=== PATIENT | male | born 1995 | race Native Hawaiian/Other Pacific Islander ===

== ENCOUNTER 2019-04-03 18:01 | Emergency (ER) | payer BC ==
[2019-04-03] MEDS ORDERED: Diph,Pert(Acell),Tet Vac 0.5 ML SYR IM ONE (18:38)
--- NOTE | 2019-04-03 18:44 | Emergency Department Record ---
History of Present Illness - General Chief Complaint: Laceration(s) Stated Complaint: RT HAND LACERATION Time Seen by Provider: 04/03/19 18:38 Source: Patient, Family (spouce) Mode of Arrival: Ambulatory Limitations: No limitations - History of Present Illness Initial Commments: Pt from home with injury to right hand from wood carving knife. Pt is left hand dominate. Accidental injury. Local pain and bleeding. No numbness or decreased ROM. -: Minutes(s) Place: Home Context: Sharp object use Associated Symptoms: None Treatments Prior to Arrival: Bandage - [place] Coma Scale Eye Response: (4) Open spontaneously Motor Response: (6) Obeys commands Verbal Response: (5) Oriented [place] Total: 15 - Related Data Hx Tetanus Toxoid Vaccination: Yes Year of Tetanus Vaccination: 2015 Patient Tetanus UTD (within 5 yrs): Yes Home Medications Medication Instructions Recorded Confirmed Last Taken Vitamin B Complex/Folic Acid [B 0.4 mg PO DAILY 04/03/19 04/03/19 04/03/19 Complex Formula #1 Tablet] Allergies Allergy/AdvReac Type Severity Reaction Status Date / Time No Known Drug Allergies Allergy Verified 04/03/19 18:17 Travel/Exposure Screening - Travel/Exposure Within Last 30 Days Have you traveled within the last 30 days?: No - Travel/Exposure Within Last Year Have you traveled outside the [place] in the last year?: No - Additonal Travel/Exposure Details Have you been exposed to anyone with a communicable illness?: No - Travel Symptoms Symptom Screening: None Review of Systems Constitutional: Denies: Chills, Fever ENT: Denies: Congestion Respiratory: Denies: Cough Cardiovascular: Denies: Chest pain Gastrointestinal: Denies: Abdominal pain Musculoskeletal: Reports: As per HPI Skin: Reports: As per HPI Neurological: Reports: As per HPI. Denies: Numbness, Tingling, Weakness Past Medical History - SOCIAL HISTORY Smoking Status: Never smoker Alcohol Use: None Drug Use: None - RESPIRATORY Hx Respiratory Disorders: No - CARDIOVASCULAR Hx Cardio Disorders: No - NEURO Hx Neuro Disorders: No - GI Hx GI Disorders: No - Hx Genitourinary Disorders: No - ENDOCRINE Hx Endocrine Disorders: No Hx Diabetes: No Hx Thyroid Disease: No - MUSCULOSKELETAL Hx Musculoskeletal Disorders: No - PSYCH Hx Psych Problems: No - HEMATOLOGY/ONCOLOGY Hx Hematology/Oncology Disorders: Yes Hx Blood Disorders: Yes Comment:: pt unsure exactly Family Medical History Any Significant Family History?: No Physical Exam - General General Appearance: Alert, Oriented x3, Cooperative, No acute distress - Head Head exam: Atraumatic - Eye Eye exam: Normal appearance, PERRL - ENT ENT exam: Mucous membranes moist - Respiratory Respiratory exam: negative: Respiratory distress - Extremities Extremities exam: Full ROM, Normal capillary refill, Other (Right proximal index finger with 1.5cm lac on radial aspect at MCP joint line. No deep structures noted, no FB, Nerve, tendon seen. Blood less field. Full ROM digit into flex/ext against resistance, good sensation distal in RIF. ). negative: Tenderness Image of Hand: 1 - lac - Neurological Neurological exam: Alert, Normal gait, Oriented X3 - Psychiatric Psychiatric exam: Normal affect, Normal mood - Skin Skin exam: Normal color. negative: Rash Course Vital Signs 04/03/19 18:08 Temperature 98.6 F Pulse Rate 70 Respiratory 16 Rate Blood Pressure 134/85 Pulse Ox 98 - Reevaluation(s) Reevaluation #1: 04/03/19 18:44 SEEN and exam: laceration repair. Disposition Disposition: Discharge Clinical Impression: Laceration of finger, right Qualifiers: Encounter type: initial encounter Finger: index finger Damage to nail status: without damage Foreign body presence: without foreign body Qualified Code(s): S61.210A - Laceration without foreign body of right index finger without damage to nail, initial encounter Disposition: Home, Self-Care Condition: (1) Good Instructions: Laceration (ED) Additional Instructions: Sutures out in 7-10 days Keep clean and dry for 3 days Return to the ED as needed. Quality - Quality Measures Quality Measures: N/A - Blood Pressure Screening Does Patient Have Any of the Following: No Blood Pressure Classification: Pre-Hypertensive BP Reading Systolic Measurement: 134 Diastolic Measurement: 85 Screening for High Blood Pressure: < Pre-Hypertensive BP, F/U Documented > [[id number]] Pre-Hypertensive Follow-up Interventions: Follow-up with rescreen every year. Laceration - Other - Time Out Confirmed first & last name, , procedure, correct site?: Yes - Location Location of laceration:: Right Laceration located on:: Finger, Hand Laceration digit detail:: 2nd Length of laceration:: 1.5 Length of laceration:: cm - Clean and Prep Laceration cleaning method:: Cleansed, Copious Irrigation Laceration cleaning agent:: Sterile H2O - Local Anesthetic Lidocaine used:: 2% Lidocaine dose:: 1 mL - Medication Medicated for procedure?: No - Procedural Detail Foreign body in the wound?: No Undermining was preformed?: No Skin suture pattern:: Interrupted Suture material/size:: 4-0: Prolene Number of skin sutures:: 2 - Post Procedural Detail Complications:: No Procedure Tolerated by Patient:: Well
== END 2019-04-03 19:05 | disposition home or self-care (01) ==
LOC: ER 18:01
DX: S61.210A Laceration without foreign body of right index finger without damage to nail, initial encounter (principal); W26.0XXA Contact with knife, initial encounter; Y92.009 Unspecified place in unspecified non-institutional (private) residence as the place of occurrence of the external cause
CPT/HCPCS: 12001; 90715; 96372; 99283